=== PATIENT | female | born 1990 | race Caucasian/White ===

== ENCOUNTER 2018-01-03 18:25 | Inpatient (IN) | payer MEDICAID ==
[~2018-01-03] VITALS: Ht 167.6 cm; Wt 86.3 kg
[~2018-01-03 18:25] MED LIST: BACI30OI6 TP; OLAN7.5T2 PO
[2018-01-03 19:53] LABS: AMPHET/METH SCREEN,URINE NEGATIVE (NEGATIVE); BARBITURATE SCREEN, URINE NEGATIVE (NEGATIVE); BENZODIAZEPINES SCREEN,URINE NEGATIVE (NEGATIVE); CANNABINOID SCREEN,URINE NEGATIVE (NEGATIVE); COCAINE SCREEN,URINE NEGATIVE (NEGATIVE); METHADONE SCREEN, URINE NEGATIVE (NEGATIVE); OPIATE SCREEN,URINE NEGATIVE (NEGATIVE)
[2018-01-03] MEDS ORDERED: LORazepam 2 MG TABLET PO PRN (20:00)
[2018-01-03 20:23] LABS: PHENCYCLIDINE SCREEN,URINE NEGATIVE (NEGATIVE)
[2018-01-04 00:29] VITALS: BP 126/76
[2018-01-04] MEDS: HALOPERIDOL 5 MG TABLET PO PRN ×2 (08:22→16:23)
[2018-01-04] MEDS: NICOTINE 21 MG/24 HOUR PATCH TD SCH (09:05)
[2018-01-04 09:37] VITALS: BP 127/69
[2018-01-04] MEDS ORDERED: BISACODYL 5 MG EC TABLET PO PRN (11:30)
[2018-01-04] MEDS: SERTRALINE HCL 50 MG TABLET PO SCH (12:45)
[2018-01-04 16:07] VITALS: BP 109/71
[2018-01-04] MEDS: HydrOXYzine PAMOATE 25 MG CAPSULE PO PRN (16:23)
[2018-01-04] MEDS: ZOLPIDEM TARTRATE 10 MG TABLET PO PRN (22:44)
[2018-01-05 04:55] VITALS: BP 113/64
[2018-01-05] MEDS: HALOPERIDOL 5 MG TABLET PO PRN ×2 (05:16→12:57)
[2018-01-05] MEDS: HydrOXYzine PAMOATE 25 MG CAPSULE PO PRN (05:17)
[2018-01-05] MEDS: SERTRALINE HCL 50 MG TABLET PO SCH (09:00)
[2018-01-05] MEDS: NICOTINE 21 MG/24 HOUR PATCH TD SCH (09:19)
[2018-01-05 13:06] VITALS: BP 122/78
[2018-01-05 16:35] VITALS: BP 122/63
[2018-01-05 18:28] VITALS: BP 126/74
[2018-01-05] MEDS: ACETAMINOPHEN 325 MG TABLET PO PRN (18:28)
[2018-01-05] MEDS: ZOLPIDEM TARTRATE 10 MG TABLET PO PRN (21:04)
[2018-01-06 04:24] VITALS: BP 107/64
[2018-01-06] MEDS: HydrOXYzine PAMOATE 25 MG CAPSULE PO PRN ×2 (06:26→17:32)
[2018-01-06] MEDS: ACETAMINOPHEN 325 MG TABLET PO PRN ×2 (06:52→19:28)
[2018-01-06 07:54] LABS: BASOPHILS % (AUTO) 0.8 % (0.0-2.0); HEMATOCRIT 31.4 % (36-46); HEMOGLOBIN 10.5 g/dL (12.0-16.0); LYMPHOCYTES # (AUTO) 3.2 K/uL (1.0-4.8); LYMPHOCYTES % (AUTO) 32.7 % (22.0-44.0); MEAN CORPUSCULAR HEMOGLOBIN 26.5 pg (26.0-34.0); MEAN CORPUSCULAR HGB CONC 33.5 G/dL (31.0-37.0); MEAN CORPUSCULAR VOLUME 79 fL (80-100); MONOCYTES # (AUTO) 0.6 K/uL (0.1-1.0); MONOCYTES % (AUTO) 6.7 % (2.0-9.0); NEUTROPHILS # (AUTO) 5.5 K/uL (1.8-7.7); NEUTROPHILS % (AUTO) 56.8 % (40.0-70.0); PLATELET COUNT (AUTO) 548 K/uL (150-450); RED BLOOD CELL COUNT(AUTO) 3.97 MIL/uL (4.00-5.20); RED CELL DISTRIBUTION WIDTH 15.2 % (11.5-14.5)
[2018-01-06 08:22] LABS: ALANINE AMINOTRANSFERASE 27 U/L (12-78); ALBUMIN 3.4 g/dL (3.4-5.0); ALKALINE PHOSPHATASE 84 U/L (46-116); ANION GAP 7 mmol/L (8-16); ASPARTATE AMINOTRANSFERASE 15 U/L (15-37); BILIRUBIN,TOTAL 0.2 mg/dL (0.1-1.0); CALCIUM, TOTAL 8.7 mg/dL (8.8-10.5); CARBON DIOXIDE 30 mmol/L (22-29); CHLORIDE 100 mmol/L (98-107); CHOL/HDL RATIO 4.4 (3.9-5.7); CHOLESTEROL 231 mg/dL (131-200); CREATININE 0.67 mg/dL (0.60-1.30); GLOMERULAR FILTR. RATE CALC > 60 mL/min (>60); GLUCOSE,RANDOM 108 mg/dL (70-110); HDL CHOLESTEROL 53 mg/dL (40-60); LDL CHOL (CALC.) 132 mg/dL (0-130); SODIUM SERUM 137 mmol/L (136-145); THYROID STIMULATING HORMONE 1.38 uIU/mL (0.36-3.74); TRIGLYCERIDES 230 mg/dL (15-150); UREA NITROGEN, BLOOD 19 mg/dL (7-18)
[2018-01-06 08:26] VITALS: BP 107/59
[2018-01-06] MEDS: SERTRALINE HCL 50 MG TABLET PO SCH (09:19)
[2018-01-06] MEDS: NICOTINE 21 MG/24 HOUR PATCH TD SCH (09:20)
[2018-01-06] MEDS: HALOPERIDOL 5 MG TABLET PO PRN (12:15)
[2018-01-06 19:26] VITALS: BP 122/66
[2018-01-06] MEDS: ZOLPIDEM TARTRATE 10 MG TABLET PO PRN (20:43)
[2018-01-07 05:34] VITALS: BP 117/73
[2018-01-07 08:30] VITALS: BP 115/59
[2018-01-07] MEDS: NICOTINE 21 MG/24 HOUR PATCH TD SCH (09:01)
[2018-01-07] MEDS: SERTRALINE HCL 50 MG TABLET PO SCH (09:01)
[2018-01-07] MEDS: HALOPERIDOL 5 MG TABLET PO PRN ×2 (09:01→16:36)
[2018-01-07 16:05] VITALS: BP 113/63
[2018-01-07] MEDS: HydrOXYzine PAMOATE 25 MG CAPSULE PO PRN (16:36)
[2018-01-08 00:16] VITALS: BP 106/67
[2018-01-08] MEDS: NICOTINE 21 MG/24 HOUR PATCH TD SCH (09:00)
[2018-01-08 09:02] VITALS: BP 114/66
[2018-01-08] MEDS: SERTRALINE HCL 50 MG TABLET PO SCH (09:33)
[2018-01-08] MEDS: HALOPERIDOL 5 MG TABLET PO PRN (09:33)
[2018-01-08] MEDS: ATORVASTATIN CALCIUM 20 MG TABLET PO SCH (09:33)
[2018-01-08] MEDS: HydrOXYzine PAMOATE 25 MG CAPSULE PO PRN (09:33)
[2018-01-08] MEDS: MULTIVITAMINS WITH IRON TABLET PO SCH (09:33)
[2018-01-08] MEDS: ARIPiprazole 10 MG TABLET PO SCH (15:08)
[2018-01-08 16:45] VITALS: BP 110/68
[2018-01-08] MEDS: ZOLPIDEM TARTRATE 10 MG TABLET PO PRN (23:54)
[2018-01-09] VITALS: BP 118/68
[2018-01-09] MEDS: MULTIVITAMINS WITH IRON TABLET PO SCH (08:36)
[2018-01-09] MEDS: ARIPiprazole 10 MG TABLET PO SCH (08:36)
[2018-01-09] MEDS: SERTRALINE HCL 50 MG TABLET PO SCH (08:36)
[2018-01-09] MEDS: ATORVASTATIN CALCIUM 20 MG TABLET PO SCH (08:37)
[2018-01-09] MEDS: NICOTINE 21 MG/24 HOUR PATCH TD SCH (08:38)
[2018-01-09 08:49] VITALS: BP 116/66
[2018-01-09] MEDS: HydrOXYzine PAMOATE 25 MG CAPSULE PO PRN ×2 (09:43→16:08)
[2018-01-09 17:23] VITALS: BP 131/70
[2018-01-09] MEDS: ZOLPIDEM TARTRATE 10 MG TABLET PO PRN (20:44)
[2018-01-10 06:57] VITALS: BP 123/68
[2018-01-10] MEDS: ARIPiprazole 15 MG TABLET PO SCH (08:16)
[2018-01-10] MEDS: MULTIVITAMINS WITH IRON TABLET PO SCH (08:16)
[2018-01-10] MEDS: NICOTINE 21 MG/24 HOUR PATCH TD SCH (08:16)
[2018-01-10] MEDS: ATORVASTATIN CALCIUM 20 MG TABLET PO SCH (08:16)
[2018-01-10] MEDS: SERTRALINE HCL 50 MG TABLET PO SCH (08:16)
[2018-01-10 08:17] VITALS: BP 127/65
[2018-01-10] MEDS: HALOPERIDOL 5 MG TABLET PO PRN ×2 (09:12→16:11)
[2018-01-10] MEDS: HydrOXYzine PAMOATE 25 MG CAPSULE PO PRN ×2 (09:30→16:11)
[2018-01-10 16:00] VITALS: BP 119/64
[2018-01-10] MEDS: ZOLPIDEM TARTRATE 10 MG TABLET PO PRN (21:22)
[2018-01-10] MEDS ORDERED: ATOR20TA86 PO (23:00)
[2018-01-10] MEDS ORDERED: ARIP15TA2 PO (23:00)
[2018-01-10] MEDS ORDERED: MVITFE PO (23:02)
[2018-01-10] MEDS ORDERED: SERT50TA12 PO (23:03)
[2018-01-11 01:56] VITALS: BP 125/72
[2018-01-11] MEDS: NICOTINE 21 MG/24 HOUR PATCH TD SCH (08:22)
[2018-01-11] MEDS: ARIPiprazole 15 MG TABLET PO SCH (08:23)
[2018-01-11] MEDS: SERTRALINE HCL 50 MG TABLET PO SCH (08:23)
[2018-01-11] MEDS: ATORVASTATIN CALCIUM 20 MG TABLET PO SCH (08:23)
[2018-01-11] MEDS: MULTIVITAMINS WITH IRON TABLET PO SCH (08:23)
[2018-01-11 08:34] VITALS: BP 117/63
== END 2018-01-11 12:47 | disposition home or self-care (01) | DRG 750 ==
LOC: EMS 18:25 → B3A 20:17
PROVIDERS: ADMIT Psychiatry & Neurology Psychiatry; ATTEND Psychiatry & Neurology Psychiatry
DX: F25.0 Schizoaffective disorder, bipolar type (principal); F22 Delusional disorders; Z91.19 Patient's noncompliance with other medical treatment and regimen; F41.9 Anxiety disorder, unspecified; F12.90 Cannabis use, unspecified, uncomplicated; K59.00 Constipation, unspecified; F17.200 Nicotine dependence, unspecified, uncomplicated; F15.90 Other stimulant use, unspecified, uncomplicated; Z79.899 Other long term (current) drug therapy; Z88.8 Allergy status to other drugs, medicaments and biological substances
CPT/HCPCS: 84439; 84443; 99285